=== PATIENT | female | born 1995 | race American Indian/Alaskan Native ===

== ENCOUNTER 2018-11-20 17:47 | Emergency (ER) | payer OTHER ==
--- NOTE | 2018-11-20 18:13 | Emergency Department Report ---
Blank Doc - Documentation Documentation: This is a 22-year-old female that presents with syncopal episode in chiropractor office today. This initial assessment/diagnostic orders/clinical plan/treatment(s) is/are subject to change based on patient's health status, clinical progression and re- assessment by fellow clinical providers in the ED. Further treatment and workup at subsequent clinical providers discretion. Patient/guardians urged not to elope from the ED as their condition may be serious if not clinically assessed and managed. Initial orders include: 1- Patient sent to MAIN ED for further evaluation and treatment 2- EKG 3- CXR 4- Labs
[2018-11-20 20:39] LABS: Basophils % (Auto) 0.2 % (0.0-1.8); Hematocrit 39.9 % (30.3-42.9); Hemoglobin 13.1 gm/dl (10.1-14.3); Lymphocytes # (Auto) 1.2 K/mm3 (1.2-5.4); Lymphocytes % (Auto) 8.6 % (13.4-35.0); Mean Corpuscular HGB Conc 33 % (30-34); Mean Corpuscular Volume 95 fl (79-97); Monocytes # (Auto) 0.3 K/mm3 (0.0-0.8); Monocytes % (Auto) 2.3 % (0.0-7.3); Platelet Count 185 K/mm3 (140-440); Red Cell Distribution Width 17.8 % (13.2-15.2)
[2018-11-20 21:00] LABS: BUN/Creatinine Ratio 13; Blood Urea Nitrogen 10 mg/dL (7-17); Calcium 9.3 mg/dL (8.4-10.2); Hemolysis Index 11
[2018-11-20] MEDS ORDERED: ZOFRAN ODT PO ONE (21:06)
[2018-11-20 21:18] LABS: Alanine Aminotransferase 12 units/L (7-56); Albumin 4.4 g/dL (3.9-5)
[2018-11-20 21:19] LABS: Bilirubin,Direct < 0.2 mg/dL (0-0.2)
[2018-11-20 22:24] LABS: Bilirubin,Urine NEG (Negative); Blood,Urine NEG (Negative); Color,Urine Yellow (Yellow); Mucus,Urine FEW /HPF; Protein,Urine <15 mg/dL mg/dL (Negative); Urobilinogen,Urine < 2.0 mg/dL (<2.0)
[2018-11-20] MEDS ORDERED: ZOFRAN IV ONE (23:26)
[2018-11-20] MEDS ORDERED: D5NS 1,000 ML IV SCH (23:45)
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
[2018-11-21] MEDS ORDERED: BENADRYL IV ONE (03:15)
[2018-11-21] MEDS ORDERED: DILAUDID IV ONE ×2 (03:15→06:55)
[2018-11-21] MEDS ORDERED: PROTONIX IV ONE (03:15)
[2018-11-21] MEDS ORDERED: REGLAN IV ONE ×2 (03:15→06:55)
[2018-11-21] MEDS ORDERED: D5NS 1,000 ML IV SCH (04:00)
[2018-11-21] MEDS ORDERED: D5W 2,000 ML IV SCH (04:00)
--- NOTE | 2018-11-21 04:42 | Cat Scan Report ---
PROCEDURE: CT ABDOMEN PELVIS W CON TECHNIQUE: Computerized axial tomography of the abdomen and pelvis was performed after the IV inject ion of iodinated nonionic contrast. HISTORY: abd pain, n,v anion gap, back pain COMPARISONS: None . FINDINGS: Visualized lower thorax: No significant abnormality. Liver: There is fatty infiltration of the liver. Spleen: Normal size and attenuation. Gallbladder and biliary system: Normal. Pancreas: Normal. Adrenals: Normal. Kidneys: Both kidneys have a normal size. No hydronephrosis. No renal stones or masses. GI tract: The stomach is normal. The small bowel has normal caliber. No obstruction, ileus or enteri tis. Cecum, appendix region and colon are normal. . Lymph nodes and mesentery: Normal. Vasculature: Normal.. Bladder: Normal. Reproductive organs: The uterus is normal. There are follicular cysts identified on each ovary.. Peritoneum: No free fluid. Musculoskeletal structures: No significant abnormality. Other: None . IMPRESSION: There is no evidence of intestinal or urinary tract obstruction. No ileus or enteritis. The appendix is normal. There is fatty infiltration of the liver. . This document is electronically signed by Ruthie Silveira DO., November 21 2018 04:39:49 AM ET
[2018-11-21 04:59] LABS: INR 1.06 (0.87-1.13)
[2018-11-21 05:00] LABS: Partial Thromboplastin Time 28.1 Sec. (24.2-36.6)
[2018-11-21 05:04] LABS: BUN/Creatinine Ratio 13; Blood Urea Nitrogen 9 mg/dL (7-17); Calcium 8.8 mg/dL (8.4-10.2); Hemolysis Index 328
[2018-11-21] MEDS ORDERED: ZOFRAN ODT ONE (05:13)
[2018-11-21] MEDS ORDERED: ZOFRAN ONE (05:13)
[2018-11-21] MEDS ORDERED: D5W 1,000 ML IV ONE (05:19)
[2018-11-21] MEDS ORDERED: VANCOMYCIN 1,250 MG in NACL 0.9% 500 ML 500 ML IV ONE (05:25)
[2018-11-21] MEDS ORDERED: ZOSYN/NS 4.5GM/100ML 4.5 GM/100 ML VIAL IV ONE (05:25)
[2018-11-21] MEDS ORDERED: VANCOMYCIN 1,250 MG in NACL 0.9% 250ML 250 ML IV ONE (06:00)
--- NOTE | 2018-11-21 06:24 | XRay Report ---
PROCEDURE: XR CHEST 1V AP TECHNIQUE: A PA view the chest was obtained. HISTORY: leukocysis, elevated lactic acid COMPARISONS: None FINDINGS: The heart size and vascularity appear normal. There is prominence of the interstitial markings bilate rally particularly in the upper lobes. Pleural fluid is not seen. The bones and soft tissues are well -maintained. IMPRESSION: Prominence of the interstitial markings in the upper lobes noted. Developing pneumonia cannot be excl uded.. This document is electronically signed by Reji Stinson MD., November 21 2018 06:22:22 AM ET
[2018-11-21] MEDS ORDERED: NACL 0.9% 1000 ML 1,000 ML IV ONE (08:28)
[2018-11-21 08:33] LABS: Amphetamine Screen,Urine PRESUMPTIVE NEGATIVE; Benzodiazepines Screen,Urine PRESUMPTIVE NEGATIVE; Cocaine Screen,Urine PRESUMPTIVE NEGATIVE; Methadone Screen,Urine PRESUMPTIVE NEGATIVE; Opiate Screen,Urine PRESUMPTIVE NEGATIVE
--- NOTE | 2018-11-21 08:50 | Cat Scan Report ---
CT LUMBAR SPINE WITHOUT CONTRAST History: Acute on chronic back pain. Technique: Helical CT in 1.25 mm intervals with sagittal and coronal reformatted images. Comparison: None. Findings: This examination is just presented to me for interpretation. There is normal bone mineralization. There is normal height and alignment of the vertebral bodies on the reconstructed images. The posterior elements are intact. The disc spaces are normal height. The facet joints are unremarkable. There is mild thickening of the ligamentum flavum in the lower lumbar spine. Although intraspinal content is limited on noncontrast CT, no large bulging disc or epidural process is identified. The paravertebral soft tissues are within normal limits. Impression: Unremarkable CT lumbar of the spine.
[2018-11-21 08:53] LABS: Cannabinoid Screen,Urine PRESUMPTIVE POSITIVE
[2018-11-21 09:19] VITALS: BP 115/67
== END 2018-11-21 09:19 | disposition home or self-care (01) ==
LOC: ED 17:47
DX: E87.2 Acidosis (principal); R10.84 Generalized abdominal pain; F10.129 Alcohol abuse with intoxication, unspecified; R11.2 Nausea with vomiting, unspecified; M54.89 Other dorsalgia; G89.29 Other chronic pain; F17.200 Nicotine dependence, unspecified, uncomplicated
CPT/HCPCS: 36415; 71045; 72131; 74177; 80048; 80076; 80307; 81001; 82140; 82805; 82962; 83690; 84484; 84703; 85025; 85610; 85730; 87040; 93005; 93010; 96361; 96365; 96367; 96375; 96376; 99285; C9113; G0480; J1170; J1200; J2405; J2543; J2765; J3370; J7030; J7050; J7070; Q9967; 80320; 96374; J7042; Q0162

== ENCOUNTER → 2018-11-20 | Emergency (ER) | payer SELFPAY ==
[~2018-11-20] MED LIST: D5W 1,000 ML IV ONE; DILAUDID ONE; REGLAN ONE; ZOFRAN ODT ONE; ZOFRAN ONE
== END ==
LOC: ED 18:06
DX: M54.9 Dorsalgia, unspecified (principal); M25.569 Pain in unspecified knee; Z53.21 Procedure and treatment not carried out due to patient leaving prior to being seen by health care provider
CPT/HCPCS: J0153; J1170; J2405; J2765; J7070; Q0162

== ENCOUNTER 2019-10-09 17:27 | Emergency (ER) | payer SELFPAY ==
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
[2019-10-09 18:50] VITALS: BP 111/70
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
[2019-10-09 19:36] LABS: Basophils % (Auto) 0.4 % (0.0-1.8); Eosinophils % (Auto) 0.8 % (0.0-4.3); Hematocrit 39.7 % (30.3-42.9); Hemoglobin 13.3 gm/dl (10.1-14.3); Lymphocytes # (Auto) 1.9 K/mm3 (1.2-5.4); Mean Corpuscular HGB Conc 34 % (30-34); Mean Corpuscular Volume 103 fl (79-97); Monocytes # (Auto) 0.5 K/mm3 (0.0-0.8); Monocytes % (Auto) 12.2 % (0.0-7.3); Platelet Count 231 K/mm3 (140-440); Red Blood Count 3.87 M/mm3 (3.65-5.03); Red Cell Distribution Width 18.1 % (13.2-15.2)
[2019-10-09 19:43] LABS: BUN/Creatinine Ratio 7; Blood Urea Nitrogen 4 mg/dL (7-17); Calcium 8.7 mg/dL (8.4-10.2); Hemolysis Index 5
[2019-10-09 20:22] LABS: Bacteria,Urine 1+ /HPF (Negative); Bilirubin,Urine NEG (Negative); Blood,Urine NEG (Negative); Color,Urine Yellow (Yellow); Mucus,Urine FEW /HPF; Protein,Urine <15 mg/dL mg/dL (Negative); RBC,Urine < 1.0 /HPF (0.0-6.0); Urobilinogen,Urine < 2.0 mg/dL (<2.0)
[2019-10-09 20:28] LABS: Benzodiazepines Screen,Urine PRESUMPTIVE NEGATIVE; Methadone Screen,Urine PRESUMPTIVE NEGATIVE; Opiate Screen,Urine PRESUMPTIVE NEGATIVE
[2019-10-09 20:41] LABS: Amphetamine Screen,Urine PRESUMPTIVE POSITIVE; Cannabinoid Screen,Urine PRESUMPTIVE POSITIVE; Cocaine Screen,Urine PRESUMPTIVE POSITIVE
== END 2019-10-09 20:20 | disposition left against medical advice (07) ==
LOC: ED 17:27
DX: T74.21XA Adult sexual abuse, confirmed, initial encounter (principal); R10.2 Pelvic and perineal pain; R00.0 Tachycardia, unspecified; F41.9 Anxiety disorder, unspecified; F10.129 Alcohol abuse with intoxication, unspecified; X58.XXXA Exposure to other specified factors, initial encounter; Y93.89 Activity, other specified; Y92.89 Other specified places as the place of occurrence of the external cause; Y99.8 Other external cause status
CPT/HCPCS: 36415; 80048; 80307; 80320; 81001; 84703; 85025; 99283; G0480